=== PATIENT | female | born 1980 | race Caucasian/White ===

== ENCOUNTER 2018-11-12 08:41 | Emergency (ER) | payer MEDICAID, OTHER ==
[~2018-11-12] VITALS: Ht 160 cm; Wt 74.8 kg
[~2018-11-12 08:41] MED LIST: RISP2TAB3 PO
[2018-11-12 08:44] VITALS: BP 125/85
--- NOTE | 2018-11-12 09:18 | NUR ---
FIRST CONTACT WITH PT. Pt ambulates with steady gait and balance. Pt states, "I think I have a UTI, I have no energy and I am pretty sure that is why. I have all that (pt asked if she has burning with urination, increase in frequency of urination). I also have a sore throat and carpal tunnel." JHONATHAN. Provided pt with UA cup for urine sample.
--- NOTE | 2018-11-12 09:20 | NUR ---
Pt states, "I already provided a urine sample when I was in triage."
[2018-11-12 09:49] LABS: MICROSCOPIC INDICATED
== END 2018-11-12 11:08 | disposition home or self-care (01) ==
LOC: ED 09:52
DX: N30.00 Acute cystitis without hematuria (principal); G56.03 Carpal tunnel syndrome, bilateral upper limbs; R05 Cough; J02.9 Acute pharyngitis, unspecified; R30.0 Dysuria; F32.9 Major depressive disorder, single episode, unspecified; F41.1 Generalized anxiety disorder; F43.20 Adjustment disorder, unspecified
CPT/HCPCS: 71046; 81001; 87081; 87880; 99284

== ENCOUNTER 2019-10-29 10:34 | Emergency (ER) | payer MEDICAID ==
[~2019-10-29] VITALS: Ht 160 cm; Wt 84.6 kg
[2019-10-29 11:02] VITALS: BP 154/113
[2019-10-29] MEDS ORDERED: ALBUTEROL/IPRATROPIUM 2.5MG/0.5MG, 3 ML NPPB ONE (11:30)
[2019-10-29] MEDS ORDERED: CEFTRIAXONE 1,000 MG ONE (12:26)
[2019-10-29] MEDS ORDERED: CEFTRIAXONE 1,000 MG IM ONE (12:30)
== END 2019-10-29 12:43 | disposition home or self-care (01) ==
LOC: ED 12:37
DX: J18.0 Bronchopneumonia, unspecified organism (principal)
CPT/HCPCS: 71046; 94640; 96372; 99283; J0696

== ENCOUNTER 2019-11-05 09:26 | Emergency (ER) | payer MEDICAID ==
[~2019-11-05] VITALS: Ht 160 cm; Wt 85.0 kg
[2019-11-05 09:29] VITALS: BP 134/73
--- NOTE | 2019-11-05 09:55 | NUR ---
ASSUMED CARE OF PT. "I COME FROM A TRANSITIONAL HOME, I HAVE TO BLOW EVERY MORNING FOR ALCOHOL AND I CAN'T DO IT SO MY NURSE WANTED ME TO COME IN". RECENT DX PNA. WAS HERE 6 DAYS AGO, GOT ZPACK, AMOXICILLIN, STEROIDS. EXP WHEEZES THROUGHOUT. DENIES CP/SOB AT MOMENT. +SMOKER BUT QUIT WHEN SHE GOT SICK.
== END 2019-11-05 10:50 | disposition home or self-care (01) ==
LOC: ED 10:44
DX: R05 Cough (principal); Z87.891 Personal history of nicotine dependence
CPT/HCPCS: 71046; 99283